=== PATIENT | female | born 1955 ===

== ENCOUNTER 2022-04-07 21:52 | Emergency (ER) | payer SELFPAY ==
[2022-04-07 23:35] LABS: #Basophils 0.1 10x3/uL (0.0-0.2); #Eosinphils 0.2 10x3/uL (0.0-0.5); #Monocytes 0.6 10x3/uL (0.0-1.1); %Basophils 0.7 % (0.0-2.0); %Eosinophils 2.9 % (0.0-6.0); %Lymphocytes 39.4 % (18.0-47.0); %Monocytes 7.6 % (0.0-10.0); %Neutrophils 49.2 % (40.0-75.0); Mean Corpuscular HGB CONC 33.9 g/dL (32.0-36.0); Mean Corpuscular Hemoglobin 29.5 pg (27.0-33.0); Mean Corpuscular Volume 86.8 fl (81.6-98.3); Mean Platelet Volume 10.3 fl (7.4-10.4); Platelet Count 305 10x3/uL (150-450); RBC Distribution Width 12.5 % (11.5-14.5); Red Blood Cell (RBC) Count 4.41 10x6/uL (3.90-5.03); White Blood Cell (WBC) Count 8.2 10x3/uL (3.5-10.5)
[2022-04-07 23:42] LABS: Critical Notified Time 2338; Puncture Site OTHER
[2022-04-07 23:43] LABS: pH (venous) 7.35 (7.32-7.43)
[2022-04-07 23:44] LABS: Actual Bicarbonate (HCO3v) 28 mEq/L (22-28); Base Excess 1.4 mEq/L (-2.0 to +3.0)
[2022-04-07 23:45] LABS: Calcium, Ionized (venous) 1.24 mmol/L (1.16-1.32); Chloride (VBG) 101 mmol/L (98-106); Draw Time: 2315; Potassium (VBG) 3.95 mmol/L (3.70-5.30); Sodium 137.4 mmol/L (133-146)
[2022-04-07 23:47] LABS: ALT (SGPT) 11 U/L (8-55); AST (SGOT) 12 U/L (5-34); Albumin 4.3 g/dL (3.4-4.8); Alkaline Phosphatase 96 U/L (40-110); Anion Gap 14 mmol/L (10-20); BUN (Urea Nitrogen) 23 mg/dL (9.8-20.1); Bilirubin, Total 0.2 mg/dL (0.2-1.2); CK (CPK) 33 U/L (29-168); Calc. Creatinine Clearance 0 mL/min (70-130); Calcium 9.8 mg/dL (7.8-10.44); Carbon Dioxide 25 mmol/L (23-31); Chloride 99 mmol/L (98-107); Estimated GFR 61; Globulin 3.3 g/dL (2.4-3.5); Glucose 324 mg/dL (80-115); Potassium 3.9 mmol/L (3.5-5.1); Protein, Total 7.6 g/dL (5.8-8.1); Sodium 134 mmol/L (136-145)
== END 2022-04-08 01:25 | disposition home or self-care (01) ==
LOC: CSHERS 21:52
DX: E11.65 Type 2 diabetes mellitus with hyperglycemia (principal); Z79.84 Long term (current) use of oral hypoglycemic drugs
CPT/HCPCS: 36416; 71045; 80053; 82010; 82550; 82805; 83605; 85025; 93005; 96360; 96361